=== PATIENT | female | born 1995 | race Caucasian/White ===

== ENCOUNTER → 2017-08-17 | Outpatient (CLI) | payer BC ==
[~2017-08-17] MED LIST: ADVA250A INH; DROS1TAB6 PO; FEXO15TA PO; FLUO20CA12 PO; FLUT50SP EACH NARE; MONT10TA4 PO; VENTAER INH
--- NOTE | 2017-08-19 13:33 | RSPPFT ---
DATE OF PROCEDURE: 08/17/17 COMMENTS: Spirometry with FVC of 3.4 predicted 3.3, FEV1 of 2.8 predicted 2.9, FEV1/FVC ratio 83% predicted 87%. Lung volumes are essentially within the predicted range. Some increase in the airways resistance is noted. DLCO is 78% of predicted. IMPRESSION:
== END ==
LOC: HRSP 13:22
PROVIDERS: ATTEND Family Medicine
DX: J45.909 Unspecified asthma, uncomplicated (principal)
CPT/HCPCS: 94060; 94726; 94729